=== PATIENT | female | born 1940 | race Caucasian/White ===

== ENCOUNTER 2021-04-01 15:17 | Emergency (ER) | payer MEDICARE, SELFPAY ==
--- NOTE | ~2021-04-01 | XR_ITS ---
EXAMINATION: XR wrist LT min 3V DATE: 04/01/2021 15:36 INDICATION: Right wrist pain, swelling and bruising post fall 2 days prior TECHNIQUE: Posteroanterior, ulnar deviation, oblique, and lateral views of the right wrist were obtai олег. COMPARISON: none FINDINGS: Intra-articular fracture of the distal right radius with dorsal and radial sided impaction resulting in 40 degrees dorsal tilt of the distal articular surface, mild depression of the articular surface o f the scaphoid fossa and with a 2 mm lucent fracture gap at the articular surface evident on the obli que image. Tiny cortical erosion at the ulnar side of the ulnar styloid process versus less likely ad ditional nondisplaced fracture. Tiny degenerative loose body versus heterotopic ossicle near the fove al attachment of the triangular fibrocartilage complex. Severe osteoarthritis at the triscaphe and fi rst carpal metacarpal joints. Moderate osteoarthritis at the first interphalangeal joint. Mild osteoa rthritis at the wrist, midcarpal and first metacarpophalangeal joints. Diffuse osteopenia. Diffuse so ft tissue swelling about the right wrist and distal forearm. IMPRESSION: 1. Dorsal and radially impacted intra-articular fracture of the distal right radius. 2. Small erosion versus less likely additional nondisplaced fracture at the ulnar styloid process. 3. 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 Reviewed, dictated and finalized at location A. IMPRESSION: 1. Dorsal and radially impacted intra-articular fracture of the distal right ra dius. 2. Small erosion versus less likely additional nondisplaced fracture at the uln ar styloid process. 3. 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
[2021-04-01 15:19] VITALS: BP 149/64; PULSE 86; RESP 18; TEMP 36.6; O2SAT 98
--- NOTE | 2021-04-01 16:15 | ED.UPPEXIN ---
HPI - Extremity Injury (Upper) General Chief Complaint: Extremity Injury, Upper Stated Complaint: left wrist injury Time Seen by Provider: 04/01/21 15:54 Source: patient Mode of arrival: ambulatory Limitations: no limitations History of Present Illness HPI narrative: Patient is 80 years old white female slipped on paper bag on the floor and fell, try to break her fall using her left hand, complaining of left wrist pain. Patient denies other injuries. Related Data Allergies Allergy/AdvReac Type Severity Reaction Status Date / Time Sulfa (Sulfonamide Allergy Mild Unknown Verified 01/14/17 20:54 Antibiotics) codeine Allergy Unknown Itching Verified 04/01/21 15:22 hydrocodone Allergy Unknown Itching Verified 04/01/21 15:22 Review of Systems Review of Systems: CONSTITUTIONAL: Denies fever, chills, or sweats. EYES: Denies visual changes, redness, or discharge. ENT: Denies rhinorrhea, congestion, sore throat, or otalgia. CARDIOVASCULAR: Denies chest pain, palpitations, or edema. RESPIRATORY: Denies cough or dyspnea. GASTROINTESTINAL: Denies abdominal pain, nausea, vomiting, or diarrhea. GENITOURINARY: Denies dysuria or hematuria. SKIN: Denies rash or itching. MUSCULOSKELETAL: Denies back pain, joint pain, or myalgia. NEUROLOGIC: Denies headache, numbness, or weakness. PSYCHIATRIC: Denies anxiety or depression. FOR[facility]LY [facility] Family History Family History Father Family history of heart disease in male family member before age 55 Social History Social History Smoking status: Never smoker Second hand tobacco smoke exposure: No Alcohol intake: never Gender identity (if verbalized by the patient): Female Exam Narrative: General appearance: Well-developed, well-nourished Skin: Normal color Head: Normocephalic, nontraumatic Neck: Supple, nontender Chest and respiratory: Airway patent, no respiratory distress, no accessory muscle use Heart: Regular rate/rhythm Vascular: Normal peripheral pulses, normal capillary refill. Musculoskeletal: Left wrist showed diffuse swelling, slightly deformed, slight limited range of motion, diffusely tender. 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 is normal as tested, no gross motor deficit Course Course Emergency Course: Stable Vital Signs Vital signs: Vital Signs Temperature 36.6 C 04/01/21 15:19 Pulse Rate 86 04/01/21 15:19 Respiratory Rate 18 04/01/21 15:19 Blood Pressure 149/64 H 04/01/21 15:19 Pulse Oximetry 98 04/01/21 15:19 Temperature 36.6 C 04/01/21 15:19 Pulse Rate 86 04/01/21 15:19 Respiratory Rate 18 04/01/21 15:19 Blood Pressure 149/64 H 04/01/21 15:19 Pulse Oximetry 98 04/01/21 15:19 MDM - Extremity Injury (Upper) MDM Narrative Medical decision making narrative: Left wrist injury, x-ray ordered Differential Diagnosis Differential diagnosis: Likely sprain and strain of wrist and fracture of wrist Imaging Data Radiologist's impression: Impressions Wrist X-Ray 04/01/21 16:11 IMPRESSION: 1. Dorsal and radially impacted intra-articular fracture of the distal right radius. 2. Small erosion versus less likely additional nondisplaced fracture at the ulnar styloid process. 3. 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 Critical Care Time Critical Care Time Critical Care Time: Yes Total Critical Care Time: 25 Discharge Plan Discharge Clinical Impression: Fracture of wrist Qualifiers: Encounter type: subsequent encounter Fracture type: closed Laterality: left Fracture healing: with nonunion Qualified Code(s
[2021-04-01] MEDS: ONDANSETRON HCL ODT 4 MG TABLET PO (16:59)
[2021-04-01] MEDS: MORPHINE SULFATE INJ (*CRX) 10 MG/ML AMP 4 MG IM (17:00)
[2021-04-01 17:26] VITALS: PULSE 80; RESP 20; O2SAT 97
== END 2021-04-01 17:28 | disposition home or self-care (01) ==
PROVIDERS: Emergency Provider Emergency Medicine; PCP Internal Medicine
DX: S62.102A Fracture of unspecified carpal bone, left wrist, initial encounter for closed fracture (principal); W01.0XXA Fall on same level from slipping, tripping and stumbling without subsequent striking against object, initial encounter
CPT/HCPCS: 29125; 73110; 96372; 99284; A9270; J2270

== ENCOUNTER 2023-11-12 14:04 | Outpatient (CLI) | payer MEDICARE, SELFPAY ==
--- NOTE | ~2023-11-12 | XR_ITS ---
EXAMINATION: XR knee RT 3V DATE: 11/12/2023 14:48 INDICATION: Right knee pain. TECHNIQUE: 3 views of right knee including standing views were obtained. COMPARISON: None. FINDINGS: There is varus attenuation at the knee. No fracture. There is severe osteoarthritis of medi al compartment and moderate osteoarthritis of lateral and patellofemoral compartments. No knee joint effusion. IMPRESSION: 1. Severe right knee osteoarthritis. Reviewed, dictated and finalized at location A.
--- NOTE | ~2023-11-12 | XR_ITS ---
EXAM: XR foot RT min 3V DATE: 11/12/2023 14:49 HISTORY: Right foot pain . COMPARISON: None available. FINDINGS: Decreased mineralization. Nondisplaced fracture of the third metatarsal neck. No lytic or blastic lesion. Moderate hallux valgus. Moderate degenerative change at the first MTP joint and multi ple midfoot joints. Plantar enthesopathy. Vascular calcifications. No erosion or periosteal change. S oft tissues within normal limits. IMPRESSION: Nondisplaced fracture of the third metatarsal neck. Reviewed, dictated and finalized at location K.
== END 2023-11-12 14:05 ==
PROVIDERS: PCP Internal Medicine; Visit Provider Internal Medicine
DX: S92.334A Nondisplaced fracture of third metatarsal bone, right foot, initial encounter for closed fracture (principal); M17.11 Unilateral primary osteoarthritis, right knee; X58.XXXA Exposure to other specified factors, initial encounter
CPT/HCPCS: 73562; 73630